=== PATIENT | female | born 1960 | race Caucasian/White ===

== ENCOUNTER 2020-09-21 14:38 | Emergency (ER) | payer OTHER ==
[~2020-09-21] VITALS: Ht 162.6 cm; Wt 84.0 kg
[2020-09-21 15:10] VITALS: BP 179/86
--- NOTE | 2020-09-21 15:59 | ED.ADGEN ---
Past Medical History Past Medical History: Cancer (Breast), Hypertension, Other Additional Past Medical Histor: Heart condition Additional Past Surgical Histo: Right mastectomy with lymph node removal Smoking Status: Never Smoker Alcohol Use: None Drug Use: None General Adult EDM: Chief Complaint: SORE THROAT HPI: HPI: Patient is a 60 year old female who presents emergency department with complaints of a sore throat for the last 24 hours. Patient states that she has been using a Primatene Mist inhaler lately for relief of chest congestion and shortness of breath. She reports that she has been having dry itchy eyes, and nasal congestion lately. She states that today she noticed that there are white patches in the back of her throat. She denies any difficulty swallowing, stridor, ear pain, headache, dizziness, chest pain, palpitations, nausea, vomiting, diarrhea, or abdominal pain. Patient denies any known exposure to strep pharyngitis or mono. She denies any difficulty swallowing but reports pain in her throat that she currently rates a 3 out of 10 on pain scale describes as a soreness. Review of Systems: Review of Systems: Complete ROS is negative unless otherwise noted in HPI. Current Medications: Current Medications Medications (Trade) Dose Ordered Sig/Lisy Start Time Stop Time Status Last Admin Dose Admin Fluconazole (Diflucan) 200 mg 1X ONCE 09/21/20 16:15 09/21/20 16:16 DC 09/21/20 16:48 200 MG Allergies: Allergies: Allergies Coded Allergies Type Severity Reaction Last Updated Verified No Known Drug Allergies 09/21/20 No Physical Exam: PE: See Above Constitutional: Well developed, well nourished, no acute distress, non-toxic appearance. [] HENT: Normocephalic, atraumatic, bilateral external ears normal, nose normal, no erythema posterior pharynx; nontender, patchy, lacy white lesions to the soft palate and tonsils bilaterally concerning for leukoplakia, the tongue appears normal [] Eyes: PERRLA, EOMI, conjunctiva normal, no discharge. [] Neck: Normal range of motion, supple, nontender, no stridor. [] Cardiovascular:Heart rate regular rhythm Lungs & Thorax: Respirations even and unlabored, no retractions, no respiratory distress Skin: Warm, dry, no erythema, no rash. [] Extremities: No cyanosis, ROM intact, no edema. [] Neurologic: Alert and oriented X 3, normal motor, normal sensory, no focal deficits noted. [] Psychologic: Affect normal, judgement normal, mood normal. [] Current Patient Data: Vital Signs: Vital Signs Date Time Temp Pulse Resp B/P (MAP) Pulse Ox O2 Delivery O2 Flow Rate FiO2 09/21/20 15:10 98.2 80 18 179/86 (117) 97 Room Air 98.2 EKG: EKG: [] Heart Score: C/O Chest Pain: No Risk Scores: Score 0 - 3: 2.5% MACE over next 6 weeks - Discharge Home Score 4 - 6: 20.3% MACE over next 6 weeks - Admit for Clinical Observation Score 7 - 10: 72.7% MACE over next 6 weeks - Early Invasive Strategies Radiology/Procedures: Radiology/Procedures: [] Course & Med Decision Making: Course & Med Decision Making Pertinent Labs and Imaging studies reviewed. (See chart for details) Patient presented for evaluation of sore throat with white patches in the back of her palate and tonsils. Patient was given 200 mg of Diflucan in the emergency department for treatment of possible thrush. I advised patient that this is likely to be leukoplakia, I encouraged her to follow-up with her primary care doctor and ear nose and throat provider Dr. Olivia Humphries for further evaluation of condition, return to the ER if symptoms worsen or fever develops. Patient verbalized an understanding of home care, medications, follow-up, and return to ED instructions and was in agreement with the plan of care. Patient was also evaluated by Dr. Dunham at the bedside who agrees with the plan of care and treatment. [] Dragon Disclaimer: Dragon Disclaimer: This electronic medical record was generated, in whole or in part, using a voice recognition dictation system. Departure Departure Impression: Primary Impression: Oral leukoplakia Disposition: HOME / SELF CARE / HOMELESS Condition: STABLE Referrals: NO PCP (PCP) OLIVIA HUMPHRIES MD Patient Instructions: Sore Throat, [id number] Additional Instructions: Follow up with Dr. Humphries and your primary care doctor for further evaluation and treatment of your condition. Return to the ER if your symptoms worsen or fever develops. HENRY LITTLE APRN September 21, 2020 15:59
[2020-09-21] MEDS ORDERED: FLUCONAZOLE 100 MG TABLET. PO ONE (16:15)
== END 2020-09-21 16:48 | disposition home or self-care (01) ==
LOC: ER 14:38
DX: K13.21 Leukoplakia of oral mucosa, including tongue (principal); I10 Essential (primary) hypertension
CPT/HCPCS: 87070; 87880; 99283

== ENCOUNTER 2021-04-12 08:17 | Emergency (ER) | payer OTHER ==
[~2021-04-12] VITALS: Ht 162.6 cm; Wt 83.7 kg
--- NOTE | 2021-04-12 08:32 | PHYS DOC ---
Past Medical History Past Medical History: Cancer, Hypertension, Other Additional Past Medical Histor: Heart condition Past Surgical History: Other Additional Past Surgical Histo: Right mastectomy with lymph node removal Smoking Status: Never Smoker Alcohol Use: None Drug Use: None General Adult EDM: Chief Complaint: FOOT INJURY PAIN HPI: HPI: Patient is a 61 year old female with left ankle swelling. She reports that on Monday she twisted her ankle and landed on it, describing an inversion injury. She had minimal pain at the time of injury, and she has had no pain since then. She has been able to ambulate without difficulty, bearing full weight. She reports that she is here because there is persistent swelling. No redness, no fever, no calf pain, no other areas of lower extremity swelling. No new injury or trauma. She has no other complaints. No previous injury to this foot or ankle. Review of Systems: Review of Systems: Constitutional: Denies fever or chills. [] Respiratory: Denies cough or shortness of breath. [] Cardiovascular: Denies chest pain or edema. [] Musculoskeletal: Left ankle swelling. No joint pain, redness. No back pain. Integument: Denies rash, no open wounds, no redness. Neurologic: Denies headache, focal weakness or sensory changes. [] Psychiatric: Denies depression or anxiety. [] Heart Score: C/O Chest Pain: No Risk Factors: Risk Factors: DM, Current or recent (<one month) smoker, HTN, HLP, family history of CAD, obesity. Risk Scores: Score 0 - 3: 2.5% MACE over next 6 weeks - Discharge Home Score 4 - 6: 20.3% MACE over next 6 weeks - Admit for Clinical Observation Score 7 - 10: 72.7% MACE over next 6 weeks - Early Invasive Strategies Allergies: Allergies: Allergies Coded Allergies Type Severity Reaction Last Updated Verified No Known Drug Allergies 09/21/20 No Physical Exam: PE: Constitutional: Well developed, well nourished, no acute distress, non-toxic ap pearance. [] HENT: Normocephalic, atraumatic Cardiovascular: +2 dorsalis pedis and posterior tibial pulse of the L foot; well perfused appearing. Lungs & Thorax: Respirations are non-labored. Skin: Warm, dry, no erythema, no rash. Skin is intact, no wounds, no erythema or warmth of the left ankle or foot. Extremities: No deformity. Mild soft tissue swelling of the lateral left ankle. Lateral ankle soft tissue and bony tenderness. Full painless active and passive range of motion. No foot tenderness. No ligamentous laxity. No calf tenderness. Full painless ROM of the left ankle. Painless eversion, inversion, plantarflexion and dorsiflexion. Neurologic: Alert and oriented X 3, normal motor function, normal sensory function, no focal deficits noted. [] Psychologic: Affect normal, judgement normal, mood normal. [] EKG: EKG: [] Radiology/Procedures: Radiology/Procedures: IMAGING REPORT Signed PATIENT: ANGIE ESCOBAR ACCOUNT: [id number] : 1960 LOCATION: ER AGE: 61 SEX: F EXAM STATUS: REG ER ORD. PHYSICIAN: ROBBY DRUMMOND DO REASON: injury, swelling PROCEDURE: ANKLE LEFT 3V XR EXAM OF ANKLE_LEFT 3V DATE: 04/12/2021 8:38 AM INDICATION: injury, swelling, pain COMPARISON: None. FINDINGS: Bones: There is no evidence of acute fracture or dislocation. Plantar calcaneal enthesophytes. Joints: The ankle mortise is congruent. No widening of the distal tibiofibular syndesmosis. Miscellaneous: Soft tissue swelling about the ankle. IMPRESSION: No evidence of acute fracture. Electronically signed by: Ayo Baker MD (04/12/2021 9:36 AM) [id number] DICTATED and SIGNED BY: AYO BAKER MD DATE: 04/12/21 [id number] 0 Course & Med Decision Making: Course & Med Decision Making Pertinent Labs and Imaging studies reviewed. (See chart for details) I discussed the findings, differential diagnosis and plan of care with the patient. Ordered an ice pack, Shay wrap and stirrup splint. She is able to bear weight without difficulty, no evidence of fracture or obvious infection. She admits to having no pain with weightbearing and range of motion. No indication for further imaging at this time. I discussed home care instructions for sprain, including RICE. She may follow-up with her primary care physician. She verbalizes understanding of return precautions provided. Ross Disclaimer: Ross Disclaimer: This electronic medical record was generated, in whole or in part, using a voice recognition dictation system. Departure Departure Impression: Primary Impression: Left ankle sprain Disposition: HOME / SELF CARE / HOMELESS Condition: STABLE Referrals: NO PCP (PCP) Patient Instructions: Ankle Sprain Additional Instructions: You may use [id number] Tylenol and/or ibuprofen for pain. Ice, rest, e levate your ankle. Use the Shay wrap for compression, which will help with swelling. Return to the ER for new injury or trauma, if you develop any severe redness, or severe joint swelling temperature 100.4 or higher, if you develop any more severe pain or any other concerns. It may take several weeks or even possibly months for the swelling to resolve completely. Follow-up with your primary care physician. ROBBY DRUMMOND DO Apr 12, 2021 08:32
[2021-04-12 08:34] VITALS: BP 78/92
--- NOTE | 2021-04-12 09:38 | RAD ---
XR EXAM OF ANKLE_LEFT 3V DATE: 04/12/2021 8:38 AM INDICATION: injury, swelling, pain COMPARISON: None. FINDINGS: Bones: There is no evidence of acute fracture or dislocation. Plantar calcaneal enthesophytes. Joints: The ankle mortise is congruent. No widening of the distal tibiofibular syndesmosis. Miscellaneous: Soft tissue swelling about the ankle. IMPRESSION: No evidence of acute fracture. Electronically signed by: Juan Pablo Tam MD (04/12/2021 9:36 AM) [id number]
== END 2021-04-12 09:39 | disposition home or self-care (01) ==
LOC: ER 08:17
DX: S93.402A Sprain of unspecified ligament of left ankle, initial encounter (principal); I10 Essential (primary) hypertension; X50.9XXA Other and unspecified overexertion or strenuous movements or postures, initial encounter; Y93.89 Activity, other specified; Y92.89 Other specified places as the place of occurrence of the external cause; Y99.8 Other external cause status
CPT/HCPCS: 29515; 73610; 99283; A6450